=== PATIENT | female | born 1975 | race Caucasian/White ===

== ENCOUNTER 2018-12-22 23:22 | Emergency (ER) | payer MEDICAID ==
[~2018-12-22] VITALS: Ht 160 cm; Wt 133.8 kg
[~2018-12-22 23:22] MED LIST: ALBUTEROL2 MG; AMOXICILLIN500 M1 PO; BG MC; FERROUS SULFAT325 M2 PO; GLU5 PO; HUMULIN N100 U/1 ML SC; HUMULIN R100 U/1 M1 SQ; LIPI10 PO; METFORMIN500 MG PO; PRI20 PO; PULMICORT0.25 MG/2 NEB; TESSALON PERLE PO; VITAMIN C500 M4 PO
[2018-12-22 23:30] VITALS: Ht 160 cm; Wt 133.8 kg
[2018-12-23 00:49] LABS: BASOPHIL % 0.3 % (0-2); PLATELET COUNT 247 x10^3mcL (130-400); RED CELL DISTRIBUTION WIDTH 14.9 % (11.5-14.5)
[2018-12-23 00:54] LABS: CALCIUM 8.7 mg/dL (8.5-10.1); CARBON DIOXIDE 32.6 mmol/L (21-32); CHLORIDE SERUM 99 mmol/L (98-107); CREATININE SERUM 0.6 mg/dL (0.6-1.0); GFR1 > 60 mL/min; GLUCOSE SERUM 296 mg/dL (74-106); POTASSIUM SERUM 3.8 mmol/L (3.5-5.1); SODIUM SERUM 138 mmol/L (136-145)
[2018-12-23 02:38] VITALS: BP 135/85
== END 2018-12-23 02:38 | disposition home or self-care (01) ==
LOC: ED 23:22
PROVIDERS: Emergency Medicine
DX: E11.65 Type 2 diabetes mellitus with hyperglycemia (principal); J45.909 Unspecified asthma, uncomplicated; E78.00 Pure hypercholesterolemia, unspecified; Z88.6 Allergy status to analgesic agent; Z88.5 Allergy status to narcotic agent
CPT/HCPCS: J7030

== ENCOUNTER 2019-03-18 00:20 | Emergency (ER) | payer MEDICAID ==
[~2019-03-18] VITALS: Ht 152.4 cm; Wt 125.2 kg
[2019-03-18 00:23] VITALS: Ht 152.4 cm; Wt 125.2 kg
[2019-03-18 01:08] LABS: PLATELET COUNT 302 x10^3mcL (130-400); RED CELL DISTRIBUTION WIDTH 13.4 % (11.5-14.5)
[2019-03-18 01:09] LABS: BASOPHIL % 0.5 % (0-2)
[2019-03-18 01:11] LABS: CALCIUM 8.9 mg/dL (8.5-10.1); CARBON DIOXIDE 28.3 mmol/L (21-32); CHLORIDE SERUM 99 mmol/L (98-107); CREATININE SERUM 0.5 mg/dL (0.6-1.0); GFR1 > 60 mL/min; GLUCOSE SERUM 197 mg/dL (74-106); POTASSIUM SERUM 3.3 mmol/L (3.5-5.1); SODIUM SERUM 136 mmol/L (136-145)
[2019-03-18 01:16] LABS: ALBUMIN 3.5 g/dL (3.4-5.0); ALKALINE PHOSPHATASE 76 U/L (46-116); ALT/SGPT 23 U/L (14-59); AST/SGOT 18 U/L (15-37); BILIRUBIN TOTAL 0.27 mg/dL (0.20-1.00); TOTAL PROTEIN, SERUM 7.9 g/dL (6.4-8.2)
[2019-03-18 01:24] LABS: T3 TOTAL 1.29 ng/mL
[2019-03-18 01:31] LABS: FREE T4 1.11 ng/dL (0.76-1.46); FREE THYROXINE INDEX 3.4 ug/dL (1.4-4.5); T4(THYROXINE) 10.6 ug/dL (4.7-13.3)
[2019-03-18 02:14] VITALS: BP 153/88
== END 2019-03-18 02:14 | disposition home or self-care (01) ==
LOC: ED 00:20
PROVIDERS: Emergency Medicine
DX: R06.00 Dyspnea, unspecified (principal); F41.9 Anxiety disorder, unspecified; R00.2 Palpitations; E11.9 Type 2 diabetes mellitus without complications; J45.909 Unspecified asthma, uncomplicated; E78.00 Pure hypercholesterolemia, unspecified; Z88.6 Allergy status to analgesic agent; Z88.5 Allergy status to narcotic agent
CPT/HCPCS: 36415; 82962; 83880; 84439; 85378; Q0092

== ENCOUNTER 2019-06-03 12:23 | Emergency (ER) | payer OTHER ==
[~2019-06-03] VITALS: Ht 160 cm; Wt 114.3 kg
[2019-06-03 12:34] VITALS: Ht 160 cm; Wt 114.3 kg
[2019-06-03 16:05] VITALS: BP 104/62
== END 2019-06-03 16:05 | disposition home or self-care (01) ==
LOC: ED 12:23
DX: S90.812A Abrasion, left foot, initial encounter (principal); R04.0 Epistaxis; W08.XXXA Fall from other furniture, initial encounter; Y93.89 Activity, other specified; Y92.89 Other specified places as the place of occurrence of the external cause; Y99.8 Other external cause status
CPT/HCPCS: 90715